=== PATIENT | female | born 1990 | race Caucasian/White ===

== ENCOUNTER 2021-07-13 17:24 | Emergency (ER) | payer OTHER ==
[2021-07-13 17:45] VITALS: TEMP 98.2; BMI 37.5
[2021-07-13 18:24] LABS: BASO % 0.3 % (0-2.0); EOS % 1.2 % (0-4.5); HEMATOCRIT 37.7 % (32.4-45.2); HEMOGLOBIN 12.5 GM/dL (10.7-15.3); LYMPH % 19.5 % (8-40); MCH 28.2 pg (25.7-33.7); MCHC 33.2 g/dl (32.0-36.0); MEAN PLT VOLUME 9.8 fl (7.5-11.1); MONO % 7.4 % (3.8-10.2); NEUT % 71.6 % (42.8-82.8); PLATELET COUNT 209 10^3/uL (134-434); RBC 4.43 M/mm3 (3.60-5.2); RDW 15.5 % (11.6-15.6); WHITE BLOOD COUNT 11.2 K/mm3 (4.0-10.0)
[2021-07-13] MEDS ORDERED: ONDANSETRON 4 MG/2 ML VIAL IVPUSH ONE (18:35)
[2021-07-13] MEDS ORDERED: morphine SULFATE 4 MG/ML VIAL IVPUSH ONE ×2 (18:35→19:57)
[2021-07-13] MEDS ORDERED: morphine SULFATE 4 MG/ML VIAL ONE ×2 (18:38→20:31)
[2021-07-13] MEDS ORDERED: ONDANSETRON 4 MG/2 ML VIAL ONE (18:38)
[2021-07-13 19:30] LABS: INR 0.99 (0.83-1.09); PROTHROMBIN TIME (PATIENT) 12.2 SEC (9.7-13.0)
[2021-07-13 19:32] LABS: ACTIVATED PTT 28.5 SECONDS (25.2-36.5)
[2021-07-13 19:48] LABS: CALCIUM 8.9 mg/dL (8.5-10.1)
[2021-07-13 19:49] LABS: ALBUMIN 3.8 g/dl (3.4-5.0)
[2021-07-13 19:52] LABS: CREATININE 0.9 mg/dL (0.55-1.3)
[2021-07-13 19:53] LABS: BILIRUBIN,TOTAL 0.2 mg/dL (0.2-1); TOT PROT 7.4 g/dl (6.4-8.2)
[2021-07-13 21:47] VITALS: BP 121/68; PULSE 89
== END 2021-07-13 21:49 | disposition home or self-care (01) ==
LOC: JER 17:24
PROC: 3E033NZ Introduction of Analgesics, Hypnotics, Sedatives into Peripheral Vein, Percutaneous Approach (ICD-10-PCS; principal; 2021-07-13)
PROC: 3E033GC Introduction of Other Therapeutic Substance into Peripheral Vein, Percutaneous Approach (ICD-10-PCS; 2021-07-13)
PROC: 3E033GC Introduction of Other Therapeutic Substance into Peripheral Vein, Percutaneous Approach (ICD-10-PCS; 2021-07-13)
DX: O03.9 Complete or unspecified spontaneous abortion without complication (principal)
CPT/HCPCS: 36415; 76817-TC; 80053; 84702; 85025; 85610; 85730; 86850; 86900; 86901; 99284-25

== ENCOUNTER 2023-02-25 11:27 | Emergency (ER) | payer OTHER ==
[2023-02-25 11:38] VITALS: BP 132/68; PULSE 95; RESP 18; TEMP 97.6; BMI 36.0
[2023-02-25] MEDS ORDERED: ACETAMINOPHEN 500 MG TABLET (FP) PO ONE (12:55)
[2023-02-25] MEDS ORDERED: KETOROLAC TROMETHAMINE 30 MG/1 ML VIAL IM ONE (13:32)
[2023-02-25] MEDS ORDERED: ACETAMINOPHEN 500 MG TABLET (FP) ONE (13:33)
[2023-02-25] MEDS ORDERED: KETOROLAC TROMETHAMINE 30 MG/1 ML VIAL ONE (13:40)
== END 2023-02-25 14:15 | disposition home or self-care (01) ==
LOC: JERFT 11:27
PROC: 2W3SX1Z Immobilization of Right Foot using Splint (ICD-10-PCS; principal; 2023-02-25)
PROC: 3E0233Z Introduction of Anti-inflammatory into Muscle, Percutaneous Approach (ICD-10-PCS; 2023-02-25)
DX: S99.921A Unspecified injury of right foot, initial encounter (principal); W10.1XXA Fall (on)(from) sidewalk curb, initial encounter; X50.0XXA Overexertion from strenuous movement or load, initial encounter
CPT/HCPCS: 73630-TC-RT-FY; 99284-25